=== PATIENT | male | born 1980 | race Caucasian/White ===

== ENCOUNTER 2018-02-03 00:05 | Emergency (ER) | payer MEDICAID, OTHER ==
[~2018-02-03] VITALS: Ht 160 cm; Wt 64.0 kg
[2018-02-03 01:35] VITALS: BP 118/69
== END 2018-02-03 01:52 | disposition home or self-care (01) ==
LOC: ER 00:46
DX: T73.0XXA Starvation, initial encounter (principal); R10.12 Left upper quadrant pain; X58.XXXA Exposure to other specified factors, initial encounter; F14.10 Cocaine abuse, uncomplicated; F12.90 Cannabis use, unspecified, uncomplicated; F11.10 Opioid abuse, uncomplicated; F15.10 Other stimulant abuse, uncomplicated; F17.210 Nicotine dependence, cigarettes, uncomplicated; F99 Mental disorder, not otherwise specified
CPT/HCPCS: 99283

== ENCOUNTER 2020-09-21 11:54 | Emergency (ER) | payer MEDICAID, OTHER ==
[~2020-09-21] VITALS: Ht 170.2 cm; Wt 60.0 kg
[2020-09-21 12:26] LABS: BASOPHILS % 0.5 % (0.0-2.0); EOSINOPHILS % 2.2 % (0.0-5.0); HEMATOCRIT. 42.6 % (42.0-52.0); HEMOGLOBIN. 14.9 g/dL (14.0-18.0); LYMPHOCYTES % 22.9 % (20.0-50.0); MEAN CORPUSCULAR HEMOGLOBIN 32.7 pg (28.0-32.0); MEAN CORPUSCULAR VOLUME 93.5 fL (80.0-94.0); MEAN PLATELET VOLUME 9.1 fl (7.4-10.4); MONOCYTES % 7.3 % (2.0-8.0); NEUTROPHILS % 67.1 % (40.0-76.0); PLATELET 292 x1000/uL (130-400); RED BLOOD CELL COUNT 4.55 mill/uL (4.7-6.1); RED CELL DISTRIBUTION WIDTH 12.8 % (11.6-14.6)
[2020-09-21 12:36] LABS: CHLORIDE 104 mEq/L (98-107)
[2020-09-21 12:42] LABS: ETHANOL BLOOD < 10 mg/dL
[2020-09-21] MEDS: SODIUM CHLORIDE 0.9% 1,000 ML IV ONE (12:43)
[2020-09-21 15:16] LABS: CLARITY URINE CLEAR (CLEAR); COLOR URINE YELLOW (YELLOW); KETONES URINE 1+ (NEGATIVE); LEUKOCYTE ESTERASE URINE TRACE (NEGATIVE); NITRITE URINE NEGATIVE (NEGATIVE); OCCULT BLOOD URINE NEGATIVE (NEGATIVE); PROTEIN URINE NEGATIVE (NEGATIVE); SPECIFIC GRAVITY URINE 1.008 (1.005-1.030)
[2020-09-21 15:32] LABS: *BARBITURATES SCREEN URINE NEGATIVE (NEGATIVE); CANNABINOID URINE SCREEN NEGATIVE (NEGATIVE); OPIATES URINE SCREEN NEGATIVE (NEGATIVE); PHENCYCLIDINE URINE SCREEN NEGATIVE (NEGATIVE)
[2020-09-21 15:33] LABS: *AMPHETAMINES SCREEN URINE PRESUMTIVE POSITIVE (NEGATIVE); *BENZODIAZEPINES SCREEN URINE NEGATIVE (NEGATIVE); *COCAINE SCREEN URINE NEGATIVE (NEGATIVE); METHADONE URINE SCREEN NEGATIVE (NEGATIVE)
[2020-09-21 15:43] VITALS: BP 128/67
== END 2020-09-21 15:44 | disposition home or self-care (01) ==
LOC: ER 11:54
DX: T65.91XA Toxic effect of unspecified substance, accidental (unintentional), initial encounter (principal); X58.XXXA Exposure to other specified factors, initial encounter; F31.9 Bipolar disorder, unspecified; F17.290 Nicotine dependence, other tobacco product, uncomplicated; F14.10 Cocaine abuse, uncomplicated; F12.10 Cannabis abuse, uncomplicated; F15.10 Other stimulant abuse, uncomplicated; F11.10 Opioid abuse, uncomplicated; Z91.14 Patient's other noncompliance with medication regimen
CPT/HCPCS: 36415; 71045; 80053; 80305; 80307; 80320; 80329; 81003; 85025; 93005; 96360; 96361; 99285; J7030; G0480